=== PATIENT | male | born 1965 | race Caucasian/White ===

== ENCOUNTER 2021-12-18 11:54 | Observation (INO) ==
[2021-12-18] MEDS: ACETAMINOPHEN 325 MG TAB PO PRN (11:56)
--- NOTE | 2021-12-18 12:36 | Emergency Department Note ---
History of Present Illness General Chief complaint: Neuro Symptoms/Deficit Stated complaint: DIZZY, LIPS AND TONGUE NUMB, R EYE VISION LOSS Time Seen by Provider: 12/18/21 12:22 Source: patient History of Present Illness Provider complaint: Stroke symptoms Onset (ago): hour(s) Location: head and eyes Pain Consistency: + constant Quality: + other (Blurry vision out of the right eye, disequilibrium and numbness to the tongue and lips) Relieved By: + none Associated symptoms: no chest pain, no cough, no fever/chills, no headaches, no nausea/vomiting, no shortness of breath or no weakness This is a 56-year-old male with a history of hypertension presenting with strokelike symptoms starting at 10 AM this morning. The patient states that he was at work about 2 did a whole when he suddenly had visual changes out of the right eye. He stated that the vision was extremely blurry but he had no loss of visual rod. He denies any double vision. It lasted approximately 2 minutes. At the same time he developed significant disequilibrium. He felt like he was going to fall over and felt disoriented. He also had numbness to his tongue and lips bilaterally. He states he was not exerting himself at the time. He was just about to digging a hole. He became very diaphoretic. Currently his only symptoms are some mild tingling in his tongue and lips. He does not take aspirin but takes NSAIDs and Tylenol for various joint pains. He states that he has had some sinus symptoms recently but is not sure if these are related to just allergies as the patient has multiple environmental allergies including meat and he ate a hamburger with chicken last night. He states that he normally ignores his allergies. He denies any fever or cough. He has had no chest pain, shortness of breath, abdominal pain, vomiting, diarrhea or urinary symptoms. Home Medications Medication Instructions Recorded Confirmed Type Cuauhtemoc Man 1 cap PO DAILY 12/18/21 12/18/21 History Multiple Herbs 1 blister PO DAILY 12/18/21 12/18/21 History allopurinol 100 mg tablet 100 mg PO DAILY 12/18/21 12/18/21 History celecoxib 200 mg capsule 200 cap PO DAILY PRN Inflammation 12/18/21 12/18/21 History lisinopril 40 mg tablet 40 mg PO DAILY 12/18/21 12/18/21 History Allergies Allergy/AdvReac Type Severity Reaction Status Date / Time Beef Containing Products Allergy Unknown Unverified 12/18/21 16:11 hops Allergy Unknown Unverified 12/18/21 16:16 lettuce Allergy Unknown Unverified 12/18/21 16:13 shellfish derived Allergy Unknown Unverified 12/18/21 16:12 tomato Allergy Unknown Unverified 12/18/21 16:14 tree and shrub pollen Allergy Unknown Unverified 12/18/21 16:21 Past Med/Surg History Medical History Hypertension Social History Smoking Status: Former smoker Hx Alcohol Use: No Hx Substance Use: No Preferred Language: [place] Ripening Room Operator Required: No Current Living Situation: Alone Feels Safe at Home: Yes Assistive Devices: None Review of Systems See HPI for pertinent positives & negatives. and A total of 10 systems reviewed and were otherwise negative Physical Exam Vital Signs Vital Signs - 24 hr 12/18/21 11:55 12/18/21 12:34 12/18/21 14:00 Temperature 36.5 C Temperature Source Temporal Artery Scan Pulse Rate 95 H Pulse Rate [Right Finger] 76 Pulse Rhythm [Right Finger] Regular Pulse Strength [Right Finger] Normal Respiratory Rate 12 14 Respiratory Effort / Characteristics Non-Labored Respiratory Depth Normal Respiratory Pattern Regular Blood Pressure 123/90 Blood Pressure [Right Arm] 142/87 H Blood Pressure Mean 101 Blood Pressure Mean [Right Arm] 105 Blood Pressure Position [Right Arm] Sitting Pulse Oximetry 96 93 Oxygen Delivery Method Room Air Room Air Sepsis Recent Fever Within 48 Hours No Sepsis New/Unexplained Change in Mental Status N/A Sepsis Action Taken by Nursing No Action Required Constitutional: Vital signs reviewed. Eyes: Pupils are equal round reactive to light. Conjunctiva are noninjected. ENT: Pharynx is clear without erythema or exudate. Mucous membranes are moist. Neck supple without meningeal signs. Respiratory: Clear to auscultation bilaterally. Breath sounds are equal bilaterally. Cardiovascular: Regular rate and rhythm. No rubs or gallops. GI: Soft, nondistended and nontender. Bowel sounds are present. Musculoskeletal: No peripheral edema. Left knee in the brace. Integumentary: No cyanosis. or jaundice. Neurologic: The patient is awake and alert. Cranial nerves II-XII are intact. Motor is 5 out of 5 all extremities. Sensation is intact to light touch all extremities. Normal speech. No pronator drift. No limb ataxia. Normal visual rod by confrontation. Psychiatric: Normal affect. Not anxious appearing. Course Administered Medications Discontinued Medications Aspirin (Aspirin 81 Mg Chew) 324 mg PO NOW STA Stop: 12/18/21 13:50 Last Admin: 12/18/21 14:20 Dose: 324 mg Documented By: PATTI Ioversol (Optiray 320 125ml) 120 ml IV ONCE ONE Stop: 12/18/21 13:07 Last Admin: 12/18/21 13:07 Dose: 120 ml Documented By: GIN Medical Decision Making Differential Diagnosis Posterior circulation CVA, intracranial hemorrhage, heatstroke, metabolic derangement, intracranial mass, cardiac Medical Records Attestation: I reviewed the patient's medical records. I did perform a limited focused review of portions of the patient's old chart on the electronic medical record. The patient has had no recent pertinent visits to this hospital. Home Medications Current Medication List: was personally reviewed by me Laboratory Data Attestation: I reviewed the patient's lab results. Result diagrams: 12/18/21 12:40 12/18/21 12:40 Lab Results 12/18/21 12/18/21 12/18/21 Range/Units 12:40 12:40 12:40 WBC 5.03 (4.8-10.8) K/ul RBC 5.20 (4.63-6.08) M/uL Hgb 15.3 (14.0-18.0) g/dl Hct 45.9 (40.1-51.0) % MCV 88.3 (80.0-100.0) fL MCH 29.4 (25.0-34.0) pg MCHC 33.3 (32.0-36.0) g/dL RDW Std Deviation 43.2 (36.4-46.3) fL RDW Coeff of Preet 13.3 (11.5-14.5) % Plt Count 180 (130-400) K/uL MPV 12.0 (9.4-12.4) fL Immature Gran % (Auto) 0.6 % Neut % (Auto) 66.8 % Lymph % (Auto) 13.1 % Dillon % (Auto) 12.1 % Eos % (Auto) 7.0 % Baso % (Auto) 0.4 % Neut # (Auto) 3.36 (1.4-6.5) K/uL Lymph # (Auto) 0.66 L (1.2-3.4) K/uL Dillon # (Auto) 0.61 (0.24-0.82) K/uL Eos # (Auto) 0.35 (0-0.50) K/uL Baso # (Auto) 0.02 (0-0.2) K/uL Immature Gran # (Auto) 0.03 H (0.00-0.02) K/uL PT 10.4 (9.0-12.0) Seconds INR 1.0 (0.9-1.1) APTT 29.5 (21.0-31.0) Seconds PTT Ratio 1.1 Sodium (136-145) mmol/L Potassium (3.5-5.1) mmol/L Chloride (98-107) mmol/L Carbon Dioxide (21-32) mmol/L Anion Gap (3-11) BUN (6-23) mg/dl Creatinine (0.6-1.4) mg/dl Est Cr Clr Drug Dosing ml/min Est GFR ( Amer) ml/min Est GFR (Non-Af Amer) ml/min BUN/Creatinine Ratio (10-20) Glucose (70-99(Fasting)) mg/dl POC Glucose (70-99) mg/dl Calcium (8.5-10.1) mg/dl Magnesium (1.7-2.4) mg/dl Total Bilirubin (0.2-1.0) mg/dl AST (13-39) U/L ALT (7-52) U/L Alkaline Phosphatase (34-104) U/L Troponin I High Sens (0-20) pg/ml Total Protein (6.0-8.3) gm/dl Albumin (3.4-5.0) gm/dl Globulin (2.5-4.0) gm/dl Albumin/Globulin Ratio (0.9-2) Blood Type O Positive Antibody Screen NEGATIVE 12/18/21 12/18/21 Range/Units 12:40 12:45 WBC (4.8-10.8) K/ul RBC (4.63-6.08) M/uL Hgb (14.0-18.0) g/dl Hct (40.1-51.0) % MCV (80.0-100.0) fL MCH (25.0-34.0) pg MCHC (32.0-36.0) g/dL RDW Std Deviation (36.4-46.3) fL RDW Coeff of Preet (11.5-14.5) % Plt Count (130-400) K/uL MPV (9.4-12.4) fL Immature Gran % (Auto) % Neut % (Auto) % Lymph % (Auto) % Dillon % (Auto) % Eos % (Auto) % Baso % (Auto) % Neut # (Auto) (1.4-6.5) K/uL Lymph # (Auto) (1.2-3.4) K/uL Dillon # (Auto) (0.24-0.82) K/uL Eos # (Auto) (0-0.50) K/uL Baso # (Auto) (0-0.2) K/uL Immature Gran # (Auto) (0.00-0.02) K/uL PT (9.0-12.0) Seconds INR (0.9-1.1) APTT (21.0-31.0) Seconds PTT Ratio Sodium 142 (136-145) mmol/L Potassium 4.1 (3.5-5.1) mmol/L Chloride 106 (98-107) mmol/L Carbon Dioxide 28 (21-32) mmol/L Anion Gap 8 (3-11) BUN 26 H (6-23) mg/dl Creatinine 1.29 (0.6-1.4) mg/dl Est Cr Clr Drug Dosing 90.0 ml/min Est GFR ( Amer) 71.4 ml/min Est GFR (Non-Af Amer) 61.6 ml/min BUN/Creatinine Ratio 20.2 H (10-20) Glucose 96 (70-99(Fasting)) mg/dl POC Glucose 92 (70-99) mg/dl Calcium 9.5 (8.5-10.1) mg/dl Magnesium 2.1 (1.7-2.4) mg/dl Total Bilirubin 0.7 (0.2-1.0) mg/dl AST 29 (13-39) U/L ALT 38 (7-52) U/L Alkaline Phosphatase 54 (34-104) U/L Troponin I High Sens < 2.3 (0-20) pg/ml Total Protein 7.8 (6.0-8.3) gm/dl Albumin 4.6 (3.4-5.0) gm/dl Globulin 3.2 (2.5-4.0) gm/dl Albumin/Globulin Ratio 1.4 (0.9-2) Blood Type Antibody Screen Imaging Data Radiologist's Impression: Head CT 12/18/21 12:[address] DOSE: 788.63 mGycm HISTORY: Dizziness. L vison loss and disequilibrium eval for cva TECHNIQUE: Multiaxial CT images of the head were performed without the use of intravenous contrast. Automated exposure control was utilized for this study. A dose lowering technique was utilized adhering to the principles of ALARA. Comparison: None. Findings: The paranasal sinuses and mastoid air cells are clear. The calvarium and skull base are intact. The ventricles and sulci are within normal limits. There is no mass, hematoma, midline shift, or acute infarct. Impression: No acute intracranial abnormality. ACT 112: Negative or not required by law. Electronically signed by: Bryon Waller M.D. 12/18/2021 1:11 PM Head CTA 12/18/21 12:34 CT ANGIOGRAM OF THE BRAIN; CT ANGIOGRAM OF THE NECK CLINICAL HISTORY: Strokelike symptoms. Dizziness. Blurry vision of the right eye. COMPARISON STUDY: Unenhanced CT of the brain performed concurrently on 12/18/2021. TECHNIQUE: Following the IV administration of right of Optiray 320, CT angiogram of the head and neck was performed from the aortic arch to the vertex. Images are reviewed in the axial, sagittal, and coronal planes. 3-D MIPS images are created and assessed. IV contrast was administered without complication. All measurements were calculated based on NASCET criteria. A dose lowering technique was utilized adhering to the principles of ALARA. CT DOSE: 1238.42 mGycm FINDINGS: Brain parenchyma: The brain parenchyma is normal in appearance. There is no e vidence of hemorrhage, mass effect, or acute territorial ischemia noting angiographic phase technique. There is no evidence of enhancing mass lesion on the angiogram phase images. The ventricles, sulci, and cisterns are normal in configuration. Hill-white matter differentiation is preserved. No extra-axial fluid collection is seen. Thoracic aorta: There is mild atherosclerotic calcification of the thoracic aorta. Visualized portions of the thoracic aorta are normal in caliber. The aortic arch demonstrates standard 3-vessel anatomy. Right carotid arterial system: The right common carotid artery is widely patent, as are the right internal and external carotid arteries. There is tortuosity of the right ICA. Left carotid arterial system: The left common carotid artery is widely patent, as are the left internal and external carotid arteries. There is tortuosity of the left ICA. Vertebral arteries: The vertebral arteries are widely patent bilaterally and codominant. Subclavian arteries: Widely patent bilaterally. Intracranial vasculature: There is origin of the right posterior cerebral artery. The internal carotid arteries are patent at the skull base, as are the anterior and middle cerebral arteries bilaterally. The vertebrobasilar system and posterior cerebral arteries are widely patent. The vertebral arteries are codominant. There is no aneurysm, high-grade stenosis, or focal vessel cut off seen throughout the intracranial circulation. Jugular veins: Patent bilaterally. Dural sinuses: Patent. Lung apices: Partially visualized upper lobe lung parenchyma appears clear. Soft tissues: The visualized pharyngeal soft tissues are normal in appearance noting angiographic phase technique. The oropharyngeal airway appears widely patent. The salivary and thyroid glands are normal in appearance. No cervical lymphadenopathy is seen. Skeletal structures: The calvarium appears intact. The cervical spine is maintained noting multilevel spondylosis. No lytic or blastic lesion is seen. Orbits: The bony orbits are intact. Orbital contents are normal as visualized. Sinuses and mastoids: The paranasal sinuses are clear. The mastoid air cells are well pneumatized. IMPRESSION: 1. There is no evidence of hemorrhage, mass effect, or acute territorial ischemia noting angiographic phase technique. 2. Unremarkable CT angiogram of the brain. 3. Unremarkable CT angiogram of the neck. ACT 112: Negative or not required by law. Electronically signed by: Ganga Javed M.D. 12/18/2021 1:23 PM Neck CTA 12/18/21 12:34 CT ANGIOGRAM OF THE BRAIN; CT ANGIOGRAM OF THE NECK CLINICAL HISTORY: Strokelike symptoms. Dizziness. Blurry vision of the right eye. COMPARISON STUDY: Unenhanced CT of the brain performed concurrently on 12/18/2021. TECHNIQUE: Following the IV administration of right of Optiray 320, CT angiogram of the head and neck was performed from the aortic arch to the vertex. Images are reviewed in the axial, sagittal, and coronal planes. 3-D MIPS images are created and assessed. IV contrast was administered without complication. All measurements were calculated based on NASCET criteria. A dose lowering technique was utilized adhering to the principles of ALARA. CT DOSE: 1238.42 mGycm FINDINGS: Brain parenchyma: The brain parenchyma is normal in appearance. There is no evidence of hemorrhage, mass effect, or acute territorial ischemia noting angiographic phase technique. There is no evidence of enhancing mass lesion on the angiogram phase images. The ventricles, sulci, and cisterns are normal in configuration. Hill-white matter differentiation is preserved. No extra-axial fluid collection is seen. Thoracic aorta: There is mild atherosclerotic calcification of the thoracic aorta. Visualized portions of the thoracic aorta are normal in caliber. The a ortic arch demonstrates standard 3-vessel anatomy. Right carotid arterial system: The right common carotid artery is widely patent, as are the right internal and external carotid arteries. There is tortuosity of the right ICA. Left carotid arterial system: The left common carotid artery is widely patent, as are the left internal and external carotid arteries. There is tortuosity of the left ICA. Vertebral arteries: The vertebral arteries are widely patent bilaterally and codominant. Subclavian arteries: Widely patent bilaterally. Intracranial vasculature: There is origin of the right posterior cerebral artery. The internal carotid arteries are patent at the skull base, as are the anterior and middle cerebral arteries bilaterally. The vertebrobasilar system and posterior cerebral arteries are widely patent. The vertebral arteries are codominant. There is no aneurysm, high-grade stenosis, or focal vessel cut off seen throughout the intracranial circulation. Jugular veins: Patent bilaterally. Dural sinuses: Patent. Lung apices: Partially visualized upper lobe lung parenchyma appears clear. Soft tissues: The visualized pharyngeal soft tissues are normal in appearance noting angiographic phase technique. The oropharyngeal airway appears widely p atent. The salivary and thyroid glands are normal in appearance. No cervical lymphadenopathy is seen. Skeletal structures: The calvarium appears intact. The cervical spine is maintained noting multilevel spondylosis. No lytic or blastic lesion is seen. Orbits: The bony orbits are intact. Orbital contents are normal as visualized. Sinuses and mastoids: The paranasal sinuses are clear. The mastoid air cells are well pneumatized. IMPRESSION: 1. There is no evidence of hemorrhage, mass effect, or acute territorial ischemia noting angiographic phase technique. 2. Unremarkable CT angiogram of the brain. 3. Unremarkable CT angiogram of the neck. ACT 112: Negative or not required by law. Electronically signed by: Ganga Javed M.D. 12/18/2021 1:23 PM ECG Data Attestation: I personally reviewed and interpreted this ECG as follows: Indication: + other (Strokelike symptoms) Rate (beats per minute): 85 Rhythm: + normal sinus ECG [place]: + Normal ECG ST segments: no ST elevation ECG Findings: + Other (Low voltage QRS likely secondary to body habitus.); no PVCs Thrombolytics MDM Did the patient receive IV thrombolytics?: No MDM Narrative I did evaluate the patient as noted above. He is presenting with the sudden onset of visual disturbance of the right eye, disequilibrium with ataxia and numbness to his tongue and lips. I was concerned about the possibility of a posterior circulation stroke. I did call a stroke alert. His only symptoms currently are some numbness to his tongue and lips. He is not an IV tPA candidate as he has very rapidly resolving symptoms. His last known well was 10 AM. IV access was established. I did order a stat CT of the head and CT angiogram of the head and neck. I did review the images myself as well as the radiology report as described above. There is no evidence of acute intracranial abnormality. No abnormality on CT angiograms. I did place an order for continuous cardiac monitoring. The monitor showed normal sinus rhythm at a rate of 94 bpm. I did order and personally review the patient's 12-lead EKG as described above. He has some low voltage likely secondary to body habitus. I did order and review the patient's blood work as noted in the electronic medical record. CBC is unremarkable without leukocytosis or anemia. CMP is unremarkable other than a mildly elevated BUN at 26. High-sensitivity troponin is negative. I did reassess the patient. He is not having any symptoms other than some minor tingling to his lips and tongue. I did discuss the case with Dr. Seth of [place] [facility]. She recommended that the patient be hospitalized for stroke work-up, including an MRI, and treated with aspirin. I did discuss plan with the patient. He was given aspirin 324 mg p.o. I did discuss case with the hospitalist and director of casework. Impression & Plan Disequilibrium, Transient vision disturbance of right eye, Numbness around mouth Discharge Plan Visit Data Chief Complaint: Neuro Symptoms/Deficit Stated Complaint: DIZZY, LIPS AND TONGUE NUMB, R EYE VISION LOSS ED Provider: Jesus Domingo Discharge Problem: Disequilibrium, Transient vision disturbance of right eye, Numbness around mouth Patient Disposition: Being Evaluated by Hospitalist Discharge Instructions Interventions: ED Discharge Assessment Last Done: 12/18/21 15:58
[2021-12-18 12:59] LABS: Basophils # (auto) 0.02 K/uL (0-0.2); Basophils % (auto) 0.4 %; Eosinophils # (auto) 0.35 K/uL (0-0.50); Hematocrit (blood only) 45.9 % (40.1-51.0); Hemoglobin 15.3 g/dl (14.0-18.0); Immature Granulocytes # (auto) 0.03 K/uL (0.00-0.02); Immature Granulocytes % (auto) 0.6 %; Lymphocytes # (auto) 0.66 K/uL (1.2-3.4); Lymphocytes % (auto) 13.1 %; Mean Corpuscular Hemoglobin 29.4 pg (25.0-34.0); Mean Corpuscular Hgb Conc 33.3 g/dL (32.0-36.0); Mean Corpuscular Volume 88.3 fL (80.0-100.0); Monocytes # (auto) 0.61 K/uL (0.24-0.82); Monocytes % (auto) 12.1 %; Neutrophils # (auto) 3.36 K/uL (1.4-6.5); Neutrophils % (auto) 66.8 %; Platelet Count 180 K/uL (130-400); RDW Coefficient of Variation 13.3 % (11.5-14.5); RDW Standard Deviation 43.2 fL (36.4-46.3); White Blood Count 5.03 K/ul (4.8-10.8)
[2021-12-18] MEDS ORDERED: OPTIRAY 320 125ml IV ONE (13:06)
[2021-12-18 13:07] LABS: Partial Thromboplastin Ratio 1.1; Partial Thromboplastin Time 29.5 Seconds (21.0-31.0); Prothrombin Time 10.4 Seconds (9.0-12.0)
--- NOTE | 2021-12-18 13:13 | CT Scan Report ---
HEAD CT NONCONTRAST CT DOSE: 788.63 mGycm HISTORY: Dizziness. L vison loss and disequilibrium eval for cva TECHNIQUE: Multiaxial CT images of the head were performed without the use of intravenous contrast. A utomated exposure control was utilized for this study. A dose lowering technique was utilized adheri ng to the principles of ALARA. Comparison: None. Findings: The paranasal sinuses and mastoid air cells are clear. The calvarium and skull base are int act. The ventricles and sulci are within normal limits. There is no mass, hematoma, midline shift, or acute infarct. Impression: No acute intracranial abnormality. ACT 112: Negative or not required by law. Electronically signed by: Bryon Waller M.D. 12/18/2021 1:11 PM
--- NOTE | 2021-12-18 13:26 | CT Scan Report ---
CT ANGIOGRAM OF THE BRAIN; CT ANGIOGRAM OF THE NECK CLINICAL HISTORY: Strokelike symptoms. Dizziness. Blurry vision of the right eye. COMPARISON STUDY: Unenhanced CT of the brain performed concurrently on 12/18/2021. TECHNIQUE: Following the IV administration of right of Optiray 320, CT angiogram of the head and neck was performed from the aortic arch to the vertex. Images are reviewed in the axial, sagittal, and co jada planes. 3-D MIPS images are created and assessed. IV contrast was administered without complica tion. All measurements were calculated based on NASCET criteria. A dose lowering technique was utili zed adhering to the principles of ALARA. CT DOSE: 1238.42 mGycm FINDINGS: Brain parenchyma: The brain parenchyma is normal in appearance. There is no evidence of hemorrhage, m ass effect, or acute territorial ischemia noting angiographic phase technique. There is no evidence o f enhancing mass lesion on the angiogram phase images. The ventricles, sulci, and cisterns are normal in configuration. Hill-white matter differentiation is preserved. No extra-axial fluid collection is seen. Thoracic aorta: There is mild atherosclerotic calcification of the thoracic aorta. Visualized portion s of the thoracic aorta are normal in caliber. The aortic arch demonstrates standard 3-vessel anatomy . Right carotid arterial system: The right common carotid artery is widely patent, as are the right int ernal and external carotid arteries. There is tortuosity of the right ICA. Left carotid arterial system: The left common carotid artery is widely patent, as are the left automotive internet sales manager al and external carotid arteries. There is tortuosity of the left ICA. Vertebral arteries: The vertebral arteries are widely patent bilaterally and codominant. Subclavian arteries: Widely patent bilaterally. Intracranial vasculature: There is origin of the right posterior cerebral artery. The internal carotid arteries are patent at the skull base, as are the anterior and middle cerebral arteries bilat erally. The vertebrobasilar system and posterior cerebral arteries are widely patent. The vertebral a rteries are codominant. There is no aneurysm, high-grade stenosis, or focal vessel cut off seen throu ghout the intracranial circulation. Jugular veins: Patent bilaterally. Dural sinuses: Patent. Lung apices: Partially visualized upper lobe lung parenchyma appears clear. Soft tissues: The visualized pharyngeal soft tissues are normal in appearance noting angiographic pha se technique. The oropharyngeal airway appears widely patent. The salivary and thyroid glands are nor mal in appearance. No cervical lymphadenopathy is seen. Skeletal structures: The calvarium appears intact. The cervical spine is maintained noting multilevel spondylosis. No lytic or blastic lesion is seen. Orbits: The bony orbits are intact. Orbital contents are normal as visualized. Sinuses and mastoids: The paranasal sinuses are clear. The mastoid air cells are well pneumatized. IMPRESSION: 1. There is no evidence of hemorrhage, mass effect, or acute territorial ischemia noting angiographic phase technique. 2. Unremarkable CT angiogram of the brain. 3. Unremarkable CT angiogram of the neck. ACT 112: Negative or not required by law. Electronically signed by: Ganga Javed M.D. 12/18/2021 1:23 PM
[2021-12-18 13:33] LABS: Troponin I High Sensitivity < 2.3 pg/ml (0-20)
[2021-12-18 13:38] LABS: Albumin Level 4.6 gm/dl (3.4-5.0); Anion Gap 8 (3-11); Bilirubin,Total 0.7 mg/dl (0.2-1.0); Calcium 9.5 mg/dl (8.5-10.1); Carbon Dioxide 28 mmol/L (21-32); Chloride 106 mmol/L (98-107); Magnesium 2.1 mg/dl (1.7-2.4); Potassium 4.1 mmol/L (3.5-5.1); Sodium 142 mmol/L (136-145)
[2021-12-18 13:43] LABS: Alanine Aminotransferase 38 U/L (7-52); Albumin Globulin Ratio 1.4 (0.9-2); Alkaline Phosphatase 54 U/L (34-104); Aspartate Aminotransferase 29 U/L (13-39); BUN Creatinine Ratio 20.2 (10-20); Blood Urea Nitrogen 26 mg/dl (6-23); Est GFR (African American) 71.4 ml/min; Est GFR (Non-African American) 61.6 ml/min; Globulin 3.2 gm/dl (2.5-4.0); Glucose 96 mg/dl (70-99(Fasting)); Total Protein 7.8 gm/dl (6.0-8.3)
[2021-12-18] MEDS ORDERED: ASPIRIN 81 MG CHEW PO STA (13:49)
--- NOTE | 2021-12-18 14:24 | History & Physical Report ---
Date of Service December 18, 2021 Assessment & Plan (1) Visual changes: Plan: - Unclear if this represents new neurological issue, in any event symptoms have essentially resolved - Please monitor observation - CT/CTA reviewed - check 2D echo - Check MRI - Okay to release on a cardiac diet as patient has no symptoms of weakness or risk factors for dysphagia - We will start low-dose aspirin 81 mg daily - Check TSH, fasting lipids, hemoglobin A1c (2) Hypertension: Plan: - patient is on no medications at this time, will continue to monitor. Blood pressure is 123/90 at time my evaluation (3) Chronic sinusitis: Plan: - Patient is concerned about lying flat in the MRI secondary to his chronic sinusitis. He does have a bottle of store brand Afrin in his pocket - I did drug and alcohol counsellor him on rebound congestion and felt that this should be weaned off, possibly replaced with a steroid nasal spray. I will defer this to his primary care physician History of Present Illness Chief Complaint: Transient unilateral visual difficulty Primary Care Provider: NO PCP This is a 56-year-old male with past medical history of chronic sinusitis, and hypertension that presents with transient visual difficulty that is since resolved. Patient is a decent historian. 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 He was digging a ditch outside at around 10 AM when he had a very sudden onset of blurriness in his right eye. The vision in the other eye was not affected. He denies any headache, palpitations, or really any other symptoms associated with this at first. He was able to pull himself out of the hole under his own power. Someone came to help him and he said he felt a little dizzy at that time. This is accompanied by paresthesias of his lips bilaterally. He denies any dysarthria or other symptoms. Everything cleared up in approximately 2 minutes although he has some residual minimal paresthesias of his face. Patient came to emergency room for further work-up which is so far been negative. Patient does note a episode of palpitations approximately 2 years ago but has had nothing since. He denies any weakness or numbness of any other extremity. He denies any current visual difficulties. He denies headache. He denies any chest pain or shortness of breath. Patient is a simple asymptomatic. Initial work-up including CT/CTA which is also unremarkable. Vitals are stable with blood pressure 133/90. Past Med/Surg History Medical History Hypertension Social History Smoking Status: Former smoker Preferred Language: Armenian Feels Safe at Home: Yes Review of Systems Constitutional: no fever, no chills, no weakness, no weight loss and no weight gain Eyes: as per Subjective / HPI Respiratory: no cough, no chest congestion, no dyspnea and no dyspnea on exertion Cardiovascular: no chest pain, no orthopnea, no palpitations, no lig htheadedness and no edema Gastrointestinal: no abdominal pain, no nausea, no vomiting, no constipation and no diarrhea/loose stools Musculoskeletal: no back pain, no neck pain, no joint pain, no stiffness and no myalgia Integumentary: no rash Neurologic: as per Subjective / HPI, + unsteadiness, + tingling and + dizziness; no gait abnormality, no falls, no localized weakness, no generalized weakness, no loss of sensation, no tremor(s), no abnormal movements, no seizure- like activity, no syncope, no headache(s), no abnormal speech, no behavioral changes and no memory loss Psychiatric: as per Subjective / HPI Physical Exam Constitutional: cooperative; no acute distress Eyes: PERRL, conjunctivae normal, anicteric sclerae Neck: trachea midline, no thyromegaly Respiratory: normal respiratory effort Auscultation: lungs clear to auscultation bilaterally; no crackles, no rales, no rhonchi and no wheezes Cardiovascular: Rate/Rhythm: regular rate and regular rhythm Heart Sounds: normal S1 and normal S2 Gastrointestinal (Abdomen): Inspection/Auscultation: abdomen normal to inspection Percussion/Palpation: abdomen soft; abdomen nontender, no guarding, abdomen not rigid and no hepatosplenomegaly Skin: no rashes, warm and dry Neurologic: patellar DTR's 2+ bilat, sensation intact and PERRL, EOMI, accommodation nl, no face palsy, no dysarthria Results & Data Results & Data ([facility]) Vital Signs (Past 12 Hours) Vital Signs Temp Pulse Resp BP Pulse Ox O2 Del Method 12/18/21 12:34 Room Air 12/18/21 11:55 36.5 C 95 H 12 123/90 96 Laboratory Results Laboratory Results WBC 5.03 K/ul (4.8-10.8) 12/18/21 12:40 RBC 5.20 M/uL (4.63-6.08) 12/18/21 12:40 Hgb 15.3 g/dl (14.0-18.0) 12/18/21 12:40 Hct 45.9 % (40.1-51.0) 12/18/21 12:40 MCV 88.3 fL (80.0-100.0) 12/18/21 12:40 MCH 29.4 pg (25.0-34.0) 12/18/21 12:40 MCHC 33.3 g/dL (32.0-36.0) 12/18/21 12:40 RDW Std Deviation 43.2 fL (36.4-46.3) 12/18/21 12:40 RDW Coeff of Preet 13.3 % (11.5-14.5) 12/18/21 12:40 Plt Count 180 K/uL (130-400) 12/18/21 12:40 MPV 12.0 fL (9.4-12.4) 12/18/21 12:40 Immature Gran % (Auto) 0.6 % 12/18/21 12:40 Neut % (Auto) 66.8 % 12/18/21 12:40 Lymph % (Auto) 13.1 % 12/18/21 12:40 Avery % (Auto) 12.1 % 12/18/21 12:40 Eos % (Auto) 7.0 % 12/18/21 12:40 Baso % (Auto) 0.4 % 12/18/21 12:40 Neut # (Auto) 3.36 K/uL (1.4-6.5) 12/18/21 12:40 Lymph # (Auto) 0.66 K/uL (1.2-3.4) L 12/18/21 12:40 Avery # (Auto) 0.61 K/uL (0.24-0.82) 12/18/21 12:40 Eos # (Auto) 0.35 K/uL (0-0.50) 12/18/21 12:40 Baso # (Auto) 0.02 K/uL (0-0.2) 12/18/21 12:40 Immature Gran # (Auto) 0.03 K/uL (0.00-0.02) H 12/18/21 12:40 PT 10.4 Seconds (9.0-12.0) 12/18/21 12:40 INR 1.0 (0.9-1.1) 12/18/21 12:40 APTT 29.5 Seconds (21.0-31.0) 12/18/21 12:40 PTT Ratio 1.1 12/18/21 12:40 Sodium 142 mmol/L (136-145) 12/18/21 12:40 Potassium 4.1 mmol/L (3.5-5.1) 12/18/21 12:40 Chloride 106 mmol/L (98-107) 12/18/21 12:40 Carbon Dioxide 28 mmol/L (21-32) 12/18/21 12:40 Anion Gap 8 (3-11) 12/18/21 12:40 BUN 26 mg/dl (6-23) H 12/18/21 12:40 Creatinine 1.29 mg/dl (0.6-1.4) 12/18/21 12:40 Est Cr Clr Drug Dosing 90.0 ml/min 12/18/21 12:40 Est GFR ( Amer) 71.4 ml/min 12/18/21 12:40 Est GFR (Non-Af Amer) 61.6 ml/min 12/18/21 12:40 BUN/Creatinine Ratio 20.2 (10-20) H 12/18/21 12:40 Glucose 96 mg/dl (70-99(Fasting)) 12/18/21 12:40 POC Glucose 92 mg/dl (70-99) 12/18/21 12:45 Calcium 9.5 mg/dl (8.5-10.1) 12/18/21 12:40 Magnesium 2.1 mg/dl (1.7-2.4) 12/18/21 12:40 Total Bilirubin 0.7 mg/dl (0.2-1.0) 12/18/21 12:40 AST 29 U/L (13-39) 12/18/21 12:40 ALT 38 U/L (7-52) 12/18/21 12:40 Alkaline Phosphatase 54 U/L (34-104) 12/18/21 12:40 Troponin I High Sens < 2.3 pg/ml (0-20) 12/18/21 12:40 Total Protein 7.8 gm/dl (6.0-8.3) 12/18/21 12:40 Albumin 4.6 gm/dl (3.4-5.0) 12/18/21 12:40 Globulin 3.2 gm/dl (2.5-4.0) 12/18/21 12:40 Albumin/Globulin Ratio 1.4 (0.9-2) 12/18/21 12:40 Blood Type O Positive 12/18/21 12:40 Antibody Screen NEGATIVE 12/18/21 12:[address] 12/18/21 12:[address] DOSE: 788.63 mGycm HISTORY: Dizziness. L vison loss and disequilibrium eval for cva TECHNIQUE: Multiaxial CT images of the head were performed without the use of intravenous contrast. Automated exposure control was utilized for this study. A dose lowering technique was utilized adhering to the principles of ALARA. Comparison: None. Findings: The paranasal sinuses and mastoid air cells are clear. The calvarium and skull base are intact. The ventricles and sulci are within normal limits. There is no mass, hematoma, midline shift, or acute infarct. Impression: No acute intracranial abnormality. ACT 112: Negative or not required by law. Electronically signed by: Bryon Waller M.D. 12/18/2021 1:11 PM Head CTA 12/18/21 12:34 CT ANGIOGRAM OF THE BRAIN; CT ANGIOGRAM OF THE NECK CLINICAL HISTORY: Strokelike symptoms. Dizziness. Blurry vision of the right eye. COMPARISON STUDY: Unenhanced CT of the brain performed concurrently on 12/18/2021. TECHNIQUE: Following the IV administration of right of Optiray 320, CT angiogram of the head and neck was performed from the aortic arch to the vertex. Images are reviewed in the axial, sagittal, and coronal planes. 3-D MIPS images are created and assessed. IV contrast was administered without complication. All measurements were calculated based on NASCET criteria. A dose lowering technique was utilized adhering to the principles of ALARA. CT DOSE: 1238.42 mGycm FINDINGS: Brain parenchyma: The brain parenchyma is normal in appearance. There is no evidence of hemorrhage, mass effect, or acute territorial ischemia noting angiographic phase technique. There is no evidence of enhancing mass lesion on the angiogram phase images. The ventricles, sulci, and cisterns are normal in configuration. Hill-white matter differentiation is preserved. No extra-axial fluid collection is seen. Thoracic aorta: There is mild atherosclerotic calcification of the thoracic aorta. Visualized portions of the thoracic aorta are normal in caliber. The aortic arch demonstrates standard 3-vessel anatomy. Right carotid arterial system: The right common carotid artery is widely patent, as are the right internal and external carotid arteries. There is tortuosity of the right ICA. Left carotid arterial system: The left common carotid artery is widely patent, as are the left internal and external carotid arteries. There is tortuosity of the left ICA. Vertebral arteries: The vertebral arteries are widely patent bilaterally and codominant. Subclavian arteries: Widely patent bilaterally. Intracranial vasculature: There is origin of the right posterior cerebral artery. The internal carotid arteries are patent at the skull base, as are the anterior and middle cerebral arteries bilaterally. The vertebrobasilar system and posterior cerebral arteries are widely patent. The vertebral arteries are codominant. There is no aneurysm, high-grade stenosis, or focal vessel cut off seen throughout the intracranial circulation. Jugular veins: Patent bilaterally. Dural sinuses: Patent. Lung apices: Partially visualized upper lobe lung parenchyma appears clear. Soft tissues: The visualized pharyngeal soft tissues are normal in appearance noting angiographic phase technique. The oropharyngeal airway appears widely patent. The salivary and thyroid glands are normal in appearance. No cervical lymphadenopathy is seen. Skeletal structures: The calvarium appears intact. The cervical spine is maintained noting multilevel spondylosis. No lytic or blastic lesion is seen. Orbits: The bony orbits are intact. Orbital contents are normal as visualized. Sinuses and mastoids: The paranasal sinuses are clear. The mastoid air cells are well pneumatized. IMPRESSION: 1. There is no evidence of hemorrhage, mass effect, or acute territorial ischemia noting angiographic phase technique. 2. Unremarkable CT angiogram of the brain. 3. Unremarkable CT angiogram of the neck. ACT 112: Negative or not required by law. Electronically signed by: Ganga Javed M.D. 12/18/2021 1:23 PM Neck CTA 12/18/21 12:34 CT ANGIOGRAM OF THE BRAIN; CT ANGIOGRAM OF THE NECK CLINICAL HISTORY: Strokelike symptoms. Dizziness. Blurry vision of the right eye. COMPARISON STUDY: Unenhanced CT of the brain performed concurrently on 12/18/2021. TECHNIQUE: Following the IV administration of right of Optiray 320, CT angiogram of the head and neck was performed from the aortic arch to the vertex. Images are reviewed in the axial, sagittal, and coronal planes. 3-D MIPS images are created and assessed. IV contrast was administered without complication. All measurements were calculated based on NASCET criteria. A dose lowering technique was utilized adhering to the principles of ALARA. CT DOSE: 1238.42 mGycm FINDINGS: Brain parenchyma: The brain parenchyma is normal in appearance. There is no evidence of hemorrhage, mass effect, or acute territorial ischemia noting angiographic phase technique. There is no evidence of enhancing mass lesion on the angiogram phase images. The ventricles, sulci, and cisterns are normal in configuration. Hill-white matter differentiation is preserved. No extra-axial fluid collection is seen. Thoracic aorta: There is mild atherosclerotic calcification of the thoracic aorta. Visualized portions of the thoracic aorta are normal in caliber. The aortic arch demonstrates standard 3-vessel anatomy. Right carotid arterial system: The right common carotid artery is widely patent, as are the right internal and external carotid arteries. There is tortuosity of the right ICA. Left carotid arterial system: The left common carotid artery is widely patent, as are the left internal and external carotid arteries. There is tortuosity of the left ICA. Vertebral arteries: The vertebral arteries are widely patent bilaterally and codominant. Subclavian arteries: Widely patent bilaterally. Intracranial vasculature: There is origin of the right posterior cerebral artery. The internal carotid arteries are patent at the skull base, as are the anterior and middle cerebral arteries bilaterally. The vertebrobasilar system and posterior cerebral arteries are widely patent. The vertebral arteries are codominant. There is no aneurysm, high-grade stenosis, or focal vessel cut off seen throughout the intracranial circulation. Jugular veins: Patent bilaterally. Dural sinuses: Patent. Lung apices: Partially visualized upper lobe lung parenchyma appears clear. Soft tissues: The visualized pharyngeal soft tissues are normal in appearance noting angiographic phase technique. The oropharyngeal airway appears widely patent. The salivary and thyroid glands are normal in appearance. No cervical lymphadenopathy is seen. Skeletal structures: The calvarium appears intact. The cervical spine is maintained noting multilevel spondylosis. No lytic or blastic lesion is seen. Orbits: The bony orbits are intact. Orbital contents are normal as visualized. Sinuses and mastoids: The paranasal sinuses are clear. The mastoid air cells are well pneumatized. IMPRESSION: 1. There is no evidence of hemorrhage, mass effect, or acute territorial ischemia noting angiographic phase technique. 2. Unremarkable CT angiogram of the brain. 3. Unremarkable CT angiogram of the neck. ACT 112: Negative or not required by law. Electronically signed by: Ganga Javed M.D. 12/18/2021 1:23 PM PG Care Time/CCT Total # of Minutes Spent Total Time Spent with Patient: Total time spent is greater than 50% in coordination of care (as documented) at patient's floor/unit and/or counseling patient: Coding Level of Care Code INT OBSERVATION CARE 70M LVL 3 Diagnoses Visual changes H53.9 Hypertension I10 Chronic sinusitis J32.9
--- NOTE | 2021-12-18 14:45 | Electrocardiogram Report ---
Test Reason : Blood Pressure : / mmHG Vent. Rate : 085 BPM Atrial Rate : 085 BPM P-R Int : 158 ms QRS Dur : 092 ms QT Int : 374 ms P-R-T Axes : 033 011 032 degrees QTc Int : 445 ms Normal sinus rhythm Low voltage QRS Incomplete right bundle branch block Borderline ECG No previous ECGs available Confirmed by Mike Gonzalez ([id number]) on 12/18/2021 2:45:25 PM Referred By: REFERRED SELF Confirmed By:Eddie Gonzalez
[2021-12-18] MEDS ORDERED: SODIUM CHLORIDE 0.65% NA SOLN 45 ML (OCEAN) PRN (17:10)
[2021-12-18] MEDS ORDERED: ONDANSETRON INJ 2 MG/ML 2 ML VIAL IV PRN (17:10)
[2021-12-18] MEDS ORDERED: PHARMACIST DISCHARGE MED REC CONSULT PRN (17:10)
[2021-12-18] MEDS ORDERED: OXYMETAZOLINE 0.05% 30 ML BTL NAE ONE (17:30)
[2021-12-18] MEDS ORDERED: LORazepam 0.5 MG in SYRINGE 0.25 ML IV STA (21:49)
[2021-12-18] MEDS ORDERED: ALBUTEROL 0.083% NEBU SOLN 3 ML VIAL NEB STA (22:02)
[2021-12-18 23:05] LABS: Amphetamines+Metham, Urine Neg (Neg); Barbiturates, Urine Neg (Neg); Benzodiazepine, Urine Neg (Neg); Cocaine, Urine Neg (Neg); MDMA (Ecstacy), Urine Neg (Neg); Methadone, Urine Neg (Neg); Opiate, Urine Neg (Neg); Phencyclidine, Urine Neg (Neg)
[2021-12-19 07:31] LABS: Basophils # (auto) 0.02 K/uL (0-0.2); Basophils % (auto) 0.6 %; Eosinophils % (auto) 2.8 %; Hematocrit (blood only) 42.3 % (40.1-51.0); Hemoglobin 14.2 g/dl (14.0-18.0); Immature Granulocytes # (auto) 0.02 K/uL (0.00-0.02); Immature Granulocytes % (auto) 0.6 %; Lymphocytes # (auto) 0.33 K/uL (1.2-3.4); Lymphocytes % (auto) 9.1 %; Mean Corpuscular Hemoglobin 29.5 pg (25.0-34.0); Mean Corpuscular Hgb Conc 33.6 g/dL (32.0-36.0); Mean Corpuscular Volume 87.9 fL (80.0-100.0); Monocytes # (auto) 0.63 K/uL (0.24-0.82); Monocytes % (auto) 17.5 %; Neutrophils # (auto) 2.51 K/uL (1.4-6.5); Neutrophils % (auto) 69.4 %; Platelet Count 151 K/uL (130-400); RDW Coefficient of Variation 13.7 % (11.5-14.5); RDW Standard Deviation 44.2 fL (36.4-46.3); Red Blood Count 4.81 M/uL (4.63-6.08); White Blood Count 3.61 K/ul (4.8-10.8)
[2021-12-19 07:49] LABS: Estimated Average Glucose 126 mg/dl
[2021-12-19 08:06] LABS: Calcium 8.8 mg/dl (8.5-10.1); Chol HDL Ratio 6.3 (0-5); Creatinine Clr Calc Pharmacy 103.8 ml/min; Est GFR (African American) 85.6 ml/min; Est GFR (Non-African American) 73.8 ml/min
--- NOTE | 2021-12-19 08:19 | Hospitalist Progress Note ---
Date of Service December 19, 2021 Assessment & Plan (1) Visual changes: Plan: - Unclear if this represents new neurological issue, in any event symptoms have essentially resolved - Please monitor observation - CT/CTA reviewed - check 2D echo - Check MRI - Okay to release on a cardiac diet as patient has no symptoms of weakness or risk factors for dysphagia - We will start low-dose aspirin 81 mg daily - Check TSH, fasting lipids, hemoglobin A1c (2) Hypertension: Plan: - patient is on no medications at this time, will continue to monitor. Blood pressure is 123/90 at time my evaluation (3) Chronic sinusitis: Plan: - Patient is concerned about lying flat in the MRI secondary to his chronic sinusitis. He does have a bottle of store brand Afrin in his pocket - I did intellectual property counsel him on rebound congestion and felt that this should be weaned off, possibly replaced with a steroid nasal spray. I will defer this to his primary care physician Admission and Anticipated Discharge Date Admission Date: December 18, 2021 Results & Data Results & Data ([facility]) Vital Signs (Past 12 Hours) Vital Signs Temp Pulse Pulse Resp BP Pulse Ox O2 Del Method 12/19/21 07:45 98.8 F 101 H 16 131/81 92 Room Air 12/19/21 03:52 99.7 F H 101 H 20 119/70 94 Room Air 12/18/21 22:22 108 H 12/18/21 21:00 Room Air 12/18/21 22:26 100.4 F H 12/18/21 22:27 103 H 18 94 Room Air 12/18/21 21:05 100.2 F H PG Care Time/CCT Total # of Minutes Spent Total Time Spent with Patient: Total time spent is greater than 50% in coordination of care (as documented) at patient's floor/unit and/or counseling patient: Coding Diagnoses Visual changes H53.9 Hypertension I10 Chronic sinusitis J32.9
[2021-12-19] MEDS ORDERED: ASPIRIN 81 MG ECTAB PO SCH (09:00)
[2021-12-19] MEDS ORDERED: lisinopril 40 MG TAB PO SCH (09:00)
[2021-12-19] MEDS ORDERED: allopurinoL 100 MG TAB PO SCH (09:00)
[2021-12-19] MEDS ORDERED: OXYMETAZOLINE 0.05% 30 ML BTL NAE PRN (09:19)
--- NOTE | 2021-12-19 10:32 | Magnetic Resonance Report ---
MR brain wo con CLINICAL HISTORY: Covid positive with blurred vision of right eye.. Question of left vision loss. COMPARISON STUDY: CT brain from 12/18/2021 TECHNIQUE: Multiplanar multisequence images of the Brain were performed without IV contrast. Diffusi on weighted imaging and ADC mapping was also performed. FINDINGS: Extra-axial space: There is no evidence for a subdural hematoma, There are no extra-axial fluid deysi ections. Ventricles and cisterns: The ventricles are normal in size and configuration. There is no evidence f or midline shift or mass effect. Parenchyma: There is no evidence for an acute hemorrhage or infarct. No acute diffusion abnormalities are noted on diffusion weighted imaging or ADC mapping. There is normal oconnell-white differentiation. The sulci and gyri appear normal without effacement. The midline structures are unremarkable. The po sterior fossa structures appear normal. There is no evidence for mass lesion. Osseous structures: The paranasal sinuses are well aerated. The mastoid air cells are well aerated. Soft tissues: No focal soft tissue abnormalities are identified. IMPRESSION: 1. No acute intracranial abnormalities. ACT 112: Negative or not required by law. Electronically signed by: Neil Georges M.D. 12/19/2021 10:30 AM
[2021-12-19] MEDS: ACETAMINOPHEN 325 MG TAB PO PRN (11:20)
--- NOTE | 2021-12-19 11:46 | XCELERA ---
[id number]
[2021-12-19] MEDS ORDERED: STROKE PATIENT DISCHARGE STA (14:52)
--- NOTE | 2021-12-19 15:13 | Pharmacy Report ---
Pharmacist Stroke Counseling - Date of Service December 19, 2021 - Scope: Pharmacy has been consulted to provide medication discharge counseling for this patient admitted with transient ischemic attack as per the Pharmacist Discharge Counseling for Stroke Patients Protocol. - Medications on Discharge: Home Medications Medication Instructions Recorded Confirmed Cuauhtemoc Man 1 cap PO DAILY 12/18/21 12/18/21 Multiple Herbs 1 blister PO DAILY 12/18/21 12/18/21 allopurinol 100 mg tablet 100 mg PO DAILY 12/18/21 12/18/21 celecoxib 200 mg capsule 200 cap PO DAILY PRN Inflammation 12/18/21 12/18/21 lisinopril 40 mg tablet 40 mg PO DAILY 12/18/21 12/18/21 New Rx's Medication Instructions Recorded aspirin 81 mg tablet,delayed 81 mg PO QAM #30 tabs 12/19/21 release - Action: The above medications, specifically ones for stroke treatment/prophylaxis, have been reviewed in detail with the patient and/or patient medical center representative(s) prior to discharge. This includes indication, common adverse reactions, drug interactions, and medication administration. Medication counseling has been employed using the teach-back method to ensure understanding. - Outcome: The patient and/or patient medical center representative(s) have demonstrated understanding of the medications. Additional comments: - discussed addition of aspirin - patient uses celecoxib pretty routinely once per day, this is generally permissible with low-dose aspirin - Patient to look out for increased bleeding risk and made aware of signs/symptoms of more serious bleeding - If long-term aspirin will be used, patient will discuss ongoing appropriateness of celecoxib - no obvious barriers to medication compliance noted on interview Thank you for allowing pharmacy to be involved in the care of this patient. Please call [phone] with any additional questions
[2021-12-19 15:40] LABS: iSTAT Creatinine 1.2 mg/dl (0.6-1.3); iSTAT Ionized Calcium 1.27 mmol/l (1.12-1.32); iSTAT Potassium 4.2 mmol/L (3.3-5.0)
--- NOTE | 2021-12-19 16:45 | Discharge Summary ---
Date of Service December 19, 2021 Admission HPI Per Admitting Provider This is a 56-year-old male with past medical history of chronic sinusitis, and hypertension that presents with transient visual difficulty that is since resolved. Patient is a decent historian. 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 He was digging a ditch outside at around 10 AM when he had a very sudden onset of blurriness in his right eye. The vision in the other eye was not affected. He denies any headache, palpitations, or really any other symptoms associated with this at first. He was able to pull himself out of the hole under his own power. Someone came to help him and he said he felt a little dizzy at that time. This is accompanied by paresthesias of his lips bilaterally. He denies any dysarthria or other symptoms. Everything cleared up in approximately 2 minutes although he has some residual minimal paresthesias of his face. Patient came to emergency room for further work-up which is so far been negative. Patient does note a episode of palpitations approximately 2 years ago but has had nothing since. He denies any weakness or numbness of any other extremity. He denies any current visual difficulties. He denies headache. He denies any chest pain or shortness of breath. Patient is a simple asymptomatic. Initial work-up including CT/CTA which is also unremarkable. Vitals are stable with blood pressure 133/90. Principal Diagnosis possible TIA Covid positive status without pulmonary symptoms Discharge Exam The patient appeared stable, neurologic symptoms resolved Vital signs as documented. Lungs are clear to auscultation and appear unlabored Cardiac exam, Rhythm is regular.. No murmurs, rubs or gallops. Abdominal exam reveals normal bowel sounds, soft non tender, no masses Extremities are nonedematous and both pedal pulses are normal. Neurologic exam is alert and oriented, no focal loss of strength or sensation Skin is without bruises or rashes Psychologically is without concerns for anxiety or depression. Discharge Data Allergies Allergy/AdvReac Type Severity Reaction Status Date / Time Beef Containing Products Allergy Unknown Unverified 12/18/21 16:11 hops Allergy Unknown Unverified 12/18/21 16:16 lettuce Allergy Unknown Unverified 12/18/21 16:13 shellfish derived Allergy Unknown Unverified 12/18/21 16:12 tomato Allergy Unknown Unverified 12/18/21 16:14 tree and shrub pollen Allergy Unknown Unverified 12/18/21 16:21 Consultations 12/18/21 13:58 ED Decision to Admit Stat Ordered Studies 12/18/21 12:34 CT angio head w con Stat CT angio neck with con Stat CT head/brain wo con Stat 12/18/21 17:10 MR brain wo con Routine Hospital Course (1) Visual changes: - cannot rule out TIA, all imaging returned to normal - CT/CTA reviewed, MRI reviewed is negative - check 2D echo normal and no pfo low-dose aspirin 81 mg daily A1c 6, for cholesterol recommend discussion with pcp and resume lifestyle modifications (2) Hypertension: pt previously has been on lisinopril will recommend follow up to discuss lifestyle modifications (3) Chronic sinusitis: - Patient is concerned about lying flat in the MRI secondary to his chronic sinusitis. 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 I will defer this to his primary care physician Total Time Total Time Spent Total Time Spent (In Minutes): It required greater than 30 minutes to prepare this patient for discharge Discharge Plan Discharge Items Patient Disposition: Home - Self-Care Reason For Visit: TIA R/O Discharge Diagnosis: tia resolved, no stroke or changes seem on brain imaging Covid + testing Activity: Per Instructions section Activity Comment: covid isolation starting 12/18/21 and per company guidelines Non-emergency contact: Primary Care Provider Call non-emergency contact if: you have any medication questions, your symptoms worsen and you have a fever Follow-up/Referrals: Ryne Curry DO [Primary Care Provider] - Diet: Regular Addtl Attending Provider Instructions: You have been diagnosed with covid infection, it would be recommended that you quarantine yourself and use use common sense precautions. Quarantine means attempting to stay away from people who have not had an active covid infection in the past, and if you have to be around others to wear a mask even if you are indoors, do not share a room to sleep in with others until you are out of quarantine. Continue to quarantine until you are symptom free for 48 hours In the day since the pandemic COVID recommendations have changed in many companies have their own human resource recommendations on COVID isolation. At this point time we will have you off work for 7 days from 18 December unless your human resource department has other recommendations. On December 26 you may return to work without restrictions He did not have a stroke all images rule out any permanent stroke. Because cannot completely rule out a intermittent or nonpermanent change in blood flow to your brain and we recommended that you take 81 mg aspirin a day and we will give you the below listed information to help improve your lifestyle to avoid chances of developing a stroke in the future Risk Factors for Stroke: You can reduce your chances of stroke by working with your medical provider to adopt a healthy lifestyle. Some specific ways to lower your chance of stroke are: * If you are a smoker, now is the time to stop smoking cigarettes * If you are diabetic, improve the control of your blood sugars * Avoid excessive amounts of alcohol * Control high blood pressure * Lose weight if you are overweight * Be sure to lead an active lifestyle * Eat a healthy diet low in salt, cholesterol and fat You should know about other risk factors for stroke that you are unable to control. These include: * Age 55 years or older * Male gender * Certain racial groups: , or / * Family History of Stroke, Mini stroke or Heart Attack * Sickle Cell Disease Follow Up: It is important for you to keep your follow up appointments with your medical provider. Who to Call and When: Medical Emergencies: Call 911 immediately if you experience any of the following warning signs and symptoms of Stroke: * Sudden numbness or weakness of the face, arm or leg, especially on one side of the body * Sudden confusion, trouble speaking or understanding * Sudden trouble seeing in one or both eyes * Sudden trouble walking, dizziness, loss of balance or coordination * Sudden severe headache with no cause Do not delay calling 911 if you experience any warning signs or symptoms of a stroke. Delay in seeking medical attention may affect what treatments can be given to you. . Pending Studies at Discharge: No Stand-Alone Forms: Medications to Prevent Stroke, My [facility] [employer], Smoking Cessation Medications and DC Order Prescriptions: New aspirin 81 mg Tablet,Delayed Release (Dr/Ec) 81 mg PO QAM Qty: 30 0RF Continued allopurinol 100 mg tablet 100 mg PO DAILY celecoxib 200 mg capsule 200 cap PO DAILY PRN (Reason: Inflammation) Cuauhtemoc Man 1 cap PO DAILY Multiple Herbs 1 blister PO DAILY Discontinued lisinopril 40 mg tablet 40 mg PO DAILY Discharge Orders: Discharge Order (Routine); Ordered 12/19/21 Ordered By: Jesus Dunbar/Other Patient Handouts: Prediabetes, 5 Steps for Eating Healthier Admission Data Admit Date/Time: 12/18/21 14:30 Attending Provider: Jesus Wray Admit Provider: Yobany Sahni Primary Care Provider: Ryne Curry Other Providers: Yobany Sahni Other Interventions: Discharge Summary Assessment (RN) Last Done: 12/19/21 15:04 Coding Level of Care Code D/C DAY MANAGEMENT >30 MINS Diagnoses Visual changes H53.9 Hypertension I10 Chronic sinusitis J32.9
== END 2021-12-19 16:35 | disposition home or self-care (01) ==
LOC: 2E 11:54 → ED 11:54 → SUATTDRO 14:30 → 2E 15:58